=== PATIENT | female | born 1970 | race Caucasian/White ===

== ENCOUNTER 2016-04-24 18:28 | Emergency (ER) | payer MEDICAID ==
[2016-04-24 18:39] VITALS: BP 122/71
[2016-04-24] MEDS ORDERED: HYDROcodone/ACETAMINOPHEN 1 EACH TABLET PO ONE ×2 (19:14→19:25)
[2016-04-24] MEDS ORDERED: MUPIROCIN 22 APPL TUBE TP ONE ×2 (19:14→19:27)
[2016-04-24] MEDS ORDERED: CLINDAMYCIN HCL 150 MG CAPSULE PO ONE ×2 (19:14→19:25)
[2016-04-24] MEDS ORDERED: HYDROcodone/ACETAMINOPHEN 1 EACH TABLET ONE ×2 (19:27→20:20)
[2016-04-24] MEDS ORDERED: CLINDAMYCIN HCL 150 MG CAPSULE ONE ×2 (19:27→20:20)
--- NOTE | 2016-04-24 19:28 | ERNOTE ---
Medical Problem HPI - Narrative Date of Service: 04/24/16 - General Chief Complaint: General Assessment Time Seen by Provider: 04/24/16 19:01 Source: patient Exam Limitations: no limitations - Immun/Allergies/Home Medications Immunizations: IMMUNIZATION HX Immunizations Up to Date Yes History of Influenza Vaccine No Hx Pneumococcal Vaccination No Allergies/Adverse Reactions: Allergies azithromycin [From Zithromax] Allergy (Verified 04/24/16 18:39) Penicillins Allergy (Verified 04/24/16 18:39) Sulfa (Sulfonamide Antibiotics) Allergy (Verified 04/24/16 18:39) Home Medications: HOME MEDICATIONS Clindamycin HCl [Cleocin] 2 cap PO QID #112 capsule 04/24/16 [Last Taken Unknown ] HYDROcodone/ACETAMINOPHEN [Ramona 5-325] 1 - 2 tab PO QID PRN #20 tab 04/24/16 [ Last Taken Unknown] Mupirocin [Bactroban] 1 appl TP BID #22 gm 04/24/16 [Last Taken Unknown] - History of Present History Narrative: 2 days ago, red spots, sore, underneath right arm. Bigger and more painful now. Previously, such a spot in her left eyebrow. Treated successfully with antibiotics. Because this skin problem was worsening, she decided to come to the [facility] ER. She had on socks at home, so accidentally slipped on carpeted stairs, falling down 7 steps, injuring her right low back. Pain 7-8/10 Timing: getting worse Severity: mild, moderate Modifying Factors - (Improves): Present: other - in the past, antibiotics cleared up the spot in her left eye brow. Review of Systems - Review of Systems Constitutional: Present: no symptoms reported EYE: Present: no symptoms reported ENT: Present: no symptoms reported Respiratory: Present: no symptoms reported Cardiology: Present: no symptoms reported Gastrointestinal/Abdominal: Present: no symptoms reported Genitourinary: Present: no symptoms reported Musculoskeletal: Present: See HPI Skin: Present: See HPI Neurological: Present: no symptoms reported Endocrine: Present: no symptoms reported Hematologic/Lymphatic: Present: no symptoms reported Psych: Present: no symptoms reported All Other Systems: All systems neg except as marked - Patient's Past Medical History Patient History - Medical: No pertinent hx Patient History - Cardiac/Respiratory: Asthma Patient History - Cancer: No Hx of Cancer Patient History - Surgical Procedures: Patient History - Other: None - Social History Living Situations: home Abuse History: No History of abuse Psych History: No pertinent hx Smoking Status: Current every day smoker Have you smoked in the past 12 months: Yes Alcohol Use: none - Immunizations Immunizations Up to Date: Yes Hx Pneumococcal Vaccination: No History of Influenza Vaccine: No Physical Exam - Physical Exam General Appearance: Present: wd/wn, alert, no apparent distress Eye Exam: Normal inspection: bilateral, PERRL: bilateral, EOMI: bilateral Ears, Nose, Throat: Present: normal ENT inspection, hearing grossly normal Neck: Present: normal inspection Respiratory: Present: no respiratory distress Cardiovascular/Chest: Present: regular rate, rhythm Gastrointestinal/Abdominal: Present: normal bowel sounds, nontender, nondistended, soft, no organomegaly Back Exam: Present: normal inspection, no CVA tenderness, no vertebral tenderness, other - very very tender right low back muscles, near pelvis, in spasm. no bruise seen Extremity Exam: Present: normal inspection, non-tender, no edema Neurological Exam: Present: alert, oriented, normal mood/affect Skin Exam: Present: normal color, warm/dry, other - several small tender patches of cellulitis right upper under arm and axilla Lymphatic Exam: Present: no adenopathy ED Progress - Vital Signs Patient's Vital Signs:: I have reviewed the patient's vital signs. Vital Signs: Vital Signs 04/24/16 18:36 Temperature 36.3 C L Pulse Rate 80 Respiratory 14 Rate Blood Pressure 122/71 O2 Sat by Pulse 100 Oximetry - Progress/Reassessment Chief Complaint: General Assessment Departure - Departure Clinical Impression: Cellulitis Qualifiers: Site of cellulitis: extremity Site of cellulitis of extremity: axilla Laterality: right Qualified Code(s): L03.111 - Cellulitis of right axilla Low back strain Qualifiers: Encounter type: initial encounter Qualified Code(s): S39.012A - Strain of muscle, fascia and tendon of lower back, initial encounter Disposition: Home self-care Condition: Good Instructions: Cellulitis, Adult, [id number], Muscle Strain, [id number], RICE for Routine Care of Injuries, [id number] Additional Instructions: Ice for the first 72 hours to your low back. See your doctor tomorrow or the next day. Prescriptions: Clindamycin HCl [Cleocin] 2 cap PO QID #112 capsule HYDROcodone/ACETAMINOPHEN [Ramona 5-325] 1 - 2 tab PO QID PRN #20 tab PRN Reason: Pain Mupirocin [Bactroban] 1 appl TP BID #22 gm
[2016-04-24] MEDS ORDERED: LIDOCAINE HCL/EPINEPHRINE 50 ML VIAL IJ ONE (19:29)
[2016-04-24] MEDS ORDERED: LIDOCAINE HCL 20 ML VIAL ONE (19:30)
== END 2016-04-24 20:34 | disposition home or self-care (01) ==
LOC: ER 18:28
DX: L03.111 Cellulitis of right axilla (principal); S39.012A Strain of muscle, fascia and tendon of lower back, initial encounter; F17.210 Nicotine dependence, cigarettes, uncomplicated; W19.XXXA Unspecified fall, initial encounter

== ENCOUNTER 2016-05-10 15:27 | Emergency (ER) | payer MEDICAID ==
[2016-05-10 15:51] VITALS: BP 132/54
--- OUTSIDE RECORDS SUMMARY | 2016-05-10 16:36 | XMS REPORT | Continuity of Care Document ---
:1970 Author Organization [facility] ([facility]) Address [address] [place] [address] Phone [phone] Care Team Providers Name Role Phone Provider, No-Primary Care Primary Care Provider Unavailable Source Comments This disclosure is being made pursuant to the Care Everywhere program, applicable federal and state laws, and may not contain all informaitonavailable regarding this patient.[facility] ([facility]) Active Allergies and Adverse Reactions Allergen Noted Date Severity Reactions Comments Erythromycin 09/25/2008 Medium Urticaria (Hives) Penicillins 09/25/2008 High Rash Sulfa (Sulfonamide Antibiotics) 09/25/2008 High Rash Current Medications Prescription Sig. Disp. Refills Start Date End Date Status ibuprofen (MOTRIN) 800 mg take 1 Tab by 42 Tab 0 09/26/2008 Active tablet mouth every 8 hours as needed for Pain. Indications: Tennis Elbow Active Problems Not on file Social History Tobacco Use Types Packs/Day Years Used Date Never Assessed Last Filed Vital Signs Vital Sign Reading Time Taken Blood Pressure 115/72 09/25/2008 9:23 PM CDT Pulse 80 09/25/2008 9:23 PM CDT Temperature 36.9 C (98.4 F) 09/25/2008 9:23 PM CDT Respiratory Rate 18 09/25/2008 9:23 PM CDT Height - - Weight - - Body Mass Index - - Oxygen Saturation 100% 09/25/2008 9:23 PM CDT Plan of Care Health Maintenance Due Date Last Done Comments Hepatitis B Vaccine (1 of 3 - Primary Series) 1970 Tdap Vaccine 1980 Lipid Disorder Screening 07/11/1987 MMR Vaccine 07/11/1987 Td Vaccine 07/11/1987 Cervical Cancer Screening 07/11/1999 01/25/1996 Mammogram 2009 Influenza Vaccine: Seasonal (#1) 10/19/2015 Results from Last 3 Months Not on file
[2016-05-10] MEDS ORDERED: PROMETHAZINE HCL 50 MG/ML AMPUL IM ONE ×2 (16:41→16:47)
[2016-05-10] MEDS ORDERED: KETOROLAC TROMETHAMINE 60 MG/2 ML VIAL IM ONE ×2 (16:41→16:47)
--- NOTE | 2016-05-10 16:45 | ERNOTE ---
Medical Problem HPI - Narrative Date of Service: 05/10/16 - General Chief Complaint: Flu Symptoms Time Seen by Provider: 05/10/16 16:29 Source: patient, family, RN notes reviewed Exam Limitations: no limitations - Immun/Allergies/Home Medications Immunizations: IMMUNIZATION HX Immunizations Up to Date Yes History of Influenza Vaccine No Hx Pneumococcal Vaccination No Allergies/Adverse Reactions: Allergies azithromycin [From Zithromax] Allergy (Verified 04/24/16 18:39) Penicillins Allergy (Verified 04/24/16 18:39) Sulfa (Sulfonamide Antibiotics) Allergy (Verified 04/24/16 18:39) Home Medications: HOME MEDICATIONS Clindamycin HCl [Cleocin] 2 cap PO QID #112 capsule 04/24/16 [Last Taken Unknown ] HYDROcodone/ACETAMINOPHEN [[place] 5-325] 1 - 2 tab PO QID PRN #20 tab 04/24/16 [ Last Taken Unknown] Mupirocin [Bactroban] 1 appl TP BID #22 gm 04/24/16 [Last Taken Unknown] Oseltamivir Phosphate [Tamiflu] 75 mg PO BID #10 cap 05/10/16 [Last Taken Unknown] Promethazine HCl/Codeine [Prometh-Codein 6.25-10 mg/5 ml] 5 ml PO Q4H PRN #120 ml 05/10/16 [Last Taken Unknown] - History of Present History Narrative: 45 y/o female to ED by private vehicle for a cough, fever and body aches that started 2 days ago. She has been taking Tylenol and ibuprofen for fever. She has had sick contacts at home. Date (Duration): 05/08/16 Review of Systems - Review of Systems Constitutional: Present: fever, chills, fatigue, malaise EYE: Present: no symptoms reported ENT: Present: nose congestion, nasal drainage, sore throat. Absent: ear pain Respiratory: Present: shortness of breath, cough. Absent: wheezing Cardiology: Absent: palpitations, syncope, edema Gastrointestinal/Abdominal: Present: nausea. Absent: vomiting, diarrhea Genitourinary: Absent: dysuria, decreased urinary output Musculoskeletal: Present: muscle pain. Absent: neck pain Skin: Absent: rash, lesions Neurological: Present: headache, dizziness/light-headedness Endocrine: Present: no symptoms reported Hematologic/Lymphatic: Present: no symptoms reported Psych: Present: no symptoms reported - Patient's Past Medical History Patient History - Medical: No pertinent hx Patient History - Cardiac/Respiratory: Asthma Patient History - Cancer: No Hx of Cancer Patient History - Surgical Procedures: Patient History - Other: None LMP (females 10-50): now - Social History Living Situations: home Abuse History: No History of abuse Psych History: No pertinent hx Smoking Status: Current every day smoker Cigarettes Packs Per Day: 0.3 Have you smoked in the past 12 months: Yes Alcohol Use: none Drug Use: none - Immunizations Immunizations Up to Date: Yes Hx Pneumococcal Vaccination: No History of Influenza Vaccine: No Physical Exam - Physical Exam General Appearance: Present: wd/wn, alert, mild distress Eye Exam: Normal inspection: bilateral Ears, Nose, Throat: Present: hearing grossly normal, nasal congestion, pharyngeal erythema. Absent: sinus pain/drainage, dry mucous membranes Neck: Present: normal inspection, nontender, supple Respiratory: Present: no respiratory distress, normal breath sounds, no accessory muscle use, lungs clear Cardiovascular/Chest: Present: regular rate, rhythm, no murmur, normal peripheral pulses Neurological Exam: Present: alert, oriented, normal mood/affect, no motor/ sensory deficits Skin Exam: Present: normal color, warm/dry ED Progress - Results and Orders Patient's Lab Results:: I have reviewed the patient's lab results. - Vital Signs Patient's Vital Signs:: I have reviewed the patient's vital signs. Vital Signs: Vital Signs 05/10/16 15:47 Temperature 38.1 C H Pulse Rate 112 H Respiratory 18 Rate Blood Pressure 132/54 O2 Sat by Pulse 96 Oximetry - Progress/Reassessment Chief Complaint: Flu Symptoms Progress:: Unchanged Departure - Departure Clinical Impression: Influenza A Disposition: Home self-care Condition: Stable Instructions: Influenza, Adult, [id number], Form - Excuse from Work, School, or Physical Activity Prescriptions: Oseltamivir Phosphate [Tamiflu] 75 mg PO BID #10 cap Promethazine HCl/Codeine [Prometh-Codein 6.25-10 mg/5 ml] 5 ml PO Q4H PRN #120 ml PRN Reason: Cough
== END 2016-05-10 16:59 | disposition home or self-care (01) ==
LOC: ER 15:27
DX: J10.1 Influenza due to other identified influenza virus with other respiratory manifestations (principal); F17.210 Nicotine dependence, cigarettes, uncomplicated